=== PATIENT | female | born 1965 | race Caucasian/White ===

== ENCOUNTER → 2018-06-29 | Outpatient (REF) | payer OTHER, MEDICAID ==
[~2018-06-29] MED LIST: CYCL10TA PO; MULTCAP PO; PROTPAK PO; TOPA1TAB PO
[2018-06-29 16:03] LABS: APPEARANCE, URINE CLOUDY (CLEAR); BACTERIA, URINE AUTO 2+ (NEGATIVE); BILIRUBIN, URINE AUTO NEGATIVE (NEGATIVE); BLOOD, URINE BLOOD 3+ (NEGATIVE); COLOR, URINE YELLOW (YELLOW); COMPLEMENT C3 164 MG/DL (90-180); COMPLEMENT C4 33 MG/DL (10-40); GLUCOSE, URINE (UA) AUTO NEGATIVE (NEGATIVE); KETONE, URINE AUTO NEGATIVE (NEGATIVE); LEUKOCYTE ESTERASE, URINE AUTO 3+ (NEGATIVE); MUCUS, URINE SMALL (NEGATIVE); NITRITE, URINE AUTO POSITIVE (NEGATIVE); PROTEIN, URINE AUTO 2+ mg/dL (NEGATIVE); RBC, URINE AUTO TNTC /HPF (0-3); SPECIFIC GRAVITY URINE AUTO 1.008 (1.002-1.035); SQUAMOUS EPITHELIAL CELL UR AU 2 /HPF (0-6); UROBILINOGEN, URINE AUTO 0.2 mg/dL (0.0-2.0); WBC, URINE AUTO TNTC /HPF (0-3)
[2018-06-29 16:13] LABS: HEMATOCRIT 44.6 % (36.0-47.0); MEAN CORPUSCULAR HEMOGLOBIN 33.2 pg (27.0-33.0); MEAN CORPUSCULAR HGB CONC 33.6 g/dl (32.0-36.5); MEAN CORPUSCULAR VOLUME 98.7 fl (80.0-96.0); PLATELET COUNT, AUTOMATED 357 10^3/uL (150-450); RED BLOOD COUNT 4.52 10^6/uL (4.00-5.40)
[2018-06-29 16:28] LABS: CREATININE,RANDOM URINE 51.1 MG/DL; TOTAL PROTEIN,RANDOM URINE 87.4 MG/DL (0.0-12.0)
[2018-06-29 18:01] LABS: EOSINOPHILS 3 % (0-5); LYMPHOCYTES 30 % (16-52); MONOCYTES 6 % (0-8); NEUTROPHILS 61 % (35-75); PLATELET ESTIMATE NORMAL (NORMAL)
[2018-06-30 10:19] LABS: BLOOD UREA NITROGEN 10 MG/DL (7-18); CALCIUM LEVEL 9.2 MG/DL (8.5-10.1); CARBON DIOXIDE LEVEL 23 MEQ/L (21-32); CHLORIDE LEVEL 109 MEQ/L (98-107); GLOMERULAR FILTRATION RATE > 60.0 (>51); GLUCOSE, FASTING 100 MG/DL (70-100); POTASSIUM SERUM 4.2 MEQ/L (3.5-5.1); SODIUM LEVEL 141 MEQ/L (136-145)
[2018-07-07 14:19] LABS: ANA (HEP2) Negative (.); ANTI DS-DNA AB <1:10 titer (.); RNP ANTIBODY 0.5 AI (0.0-0.9); SMITHS ANTIBODY < 0.2 AI (0.0-0.9); SSA SJOGRENS A <0.2 AI (0.0-0.9); SSB SJOGRENS B <0.2 AI (0.0-0.9)
== END ==
LOC: M SFHCPLAZ 13:29
PROVIDERS: ATTEND Internal Medicine Rheumatology
DX: R76.8 Other specified abnormal immunological findings in serum (principal)

== ENCOUNTER 2018-07-14 10:06 | Day surgery (SDC) | payer OTHER ==
[~2018-07-14] VITALS: Ht 165.1 cm; Wt 89.7 kg
[~2018-07-14 10:06] MED LIST changes: +CIPR-249 PO; +CIPROFLOXACIN 400 MG in APPROPRIATE DILUENT 1 EA IV ONE; +LR 1,000 ML IV ONE
[2018-07-14] MEDS ORDERED: fentaNYL 100 MCG/2 ML INJECTION (J3010) As Ordered ONE ×2 (12:00→14:07)
[2018-07-14] MEDS ORDERED: LIDOCAINE 2% INJ 100 MG/5 ML SDV (FOR ANES.) As Ordered ONE (12:00)
[2018-07-14] MEDS ORDERED: PROPOFOL 200 MG/20 ML VIAL As Ordered ONE (12:00)
[2018-07-14] MEDS ORDERED: MIDAZOLAM INJ 2 MG/2 ML VIAL (J2250) As Ordered ONE (12:00)
[2018-07-14] MEDS ORDERED: ONDANSETRON 4MG/2ML VIAL (J2405) As Ordered ONE (12:19)
[2018-07-14] MEDS ORDERED: dexameTHASONE 4 MG/ML 1ML VIAL (J1100) As Ordered ONE (12:19)
[2018-07-14] MEDS ORDERED: CONRAY-60 60% 50ML VIAL (Q9961) As Ordered ONE (12:53)
[2018-07-14] MEDS ORDERED: ACETAMINOPHEN 1000MG 100ML IV BTL (OFIRMEV) (J0131 PER 10MG) As Ordered ONE (13:29)
--- NOTE | 2018-07-14 15:42 | RO ---
DATE OF PROCEDURE: 07/14/2018 PREPROCEDURE DIAGNOSIS: Bilateral kidney stones. POSTPROCEDURE DIAGNOSIS: Bilateral kidney stones. PROCEDURE: Cystoscopy, bilateral ureteroscopy with laser lithotripsy and basket extraction of stones, bilateral retrograde pyelogram with intraoperative interpretation of images, bilateral ureteral stent placement. SURGEON: Dr. Umesh Cordova COMPREHENSIVE ADVISOR: None. ANESTHESIA: General. OPERATIVE INDICATIONS: This is a 53-year-old female who was found to have bilateral kidney stones measuring up to 1.6 cm from the right and 1 cm in left. She previously had bilateral ureteral stents placed at an outside hospital. She was brought today for treatment of her stones. DESCRIPTION OF PROCEDURE: The patient was brought to the operating room where general anesthesia was induced. Prophylactic antibiotics were infused. She was then placed in dorsal lithotomy position and prepped and draped in the usual sterile fashion. A rigid cystoscope was inserted into the urethral meatus and advanced into the bladder. A guidewire was then advanced up the right collecting system along side the previously placed stent. That stent was then removed intact. I then advanced the ureteral access sheath over the wire up into the right collecting system. I went the up the access sheath with a flexible ureteroscope and examined the kidney, and of note, a 1.6 cm stone was seen in the right renal pelvis. I then utilized a 270 micron laser fiber to fragment the stone in several smaller pieces. All the fragments were then removed using a basket. Once satisfied that all the larger stones fragments have been removed and that the only thing remained was very small stone debris, I shot a retrograde pyelogram. It was notable for moderate right hydronephrosis and no extravasation. I then took another look around kidney and once again confirmed there were only tiny stone debris remaining. Once that was done, I withdrew the ureteroscope along with access sheath and no there were no stones seen in the ureter. I then utilized the wire to advance a 6 [place] x 22-32 cm JJ ureteral stent up into the right collecting system. The wire was removed and there were adequate curls of the stent in the right renal pelvis and in the bladder. I then advanced a wire up the left collecting system along side the previously placed stent. That stent was then removed intact. I then advanced the ureteral access sheath over the wire up into the right collecting system. I went up the access sheath with a flexible ureteroscope and the 1 cm stone was seen inside the left kidney. No other stones were seen. I then utilized the laser to fragment the stone in smaller pieces and then removed all pieces using a basket. Once satisfied that all the stones fragments were removed, a retrograde pyelogram was performed. It was notable for moderate left hydronephrosis and no extravasation. I then withdrew the ureteroscope along with access sheath and no stones were seen within the ureter. I then utilized the wire to advance a 6 [place] x 22-32 cm JJ ureteral stent up into the left collecting system. The wire was removed and there were adequate curls of the stent in the left renal pelvis and in the bladder. The bladder was then emptied of all fluid and this marked the conclusion of the procedure. The patient was then taken out of the dorsal lithotomy position, awakened from anesthesia and transported to the recovery room in stable condition. Estimated blood loss: 5 mL. Complications: None. Specimens: Kidney stone fragments. Plan: The patient will followup in the clinic in a few weeks with imaging prior to confirm all the stones are gone. We will likely remove her stents at that time.
--- NOTE | 2018-07-14 15:49 | REP ---
C-ARM VIEWS DURING BILATERAL URETERAL STENT PLACEMENT: Four C-arm views are performed. There is placement of the bilateral ureteral stents. The proximal end of each stent is in the respective renal pelvis and the distal ends are in the urinary bladder. 31 seconds fluoroscopy time utilized. Electronically Signed by Brant Rockwell MD 07/18/2018 04:55 P
[2018-07-14] MEDS ORDERED: ONDANSETRON 4MG/2ML VIAL (J2405) IV PRN (16:00)
[2018-07-14] MEDS ORDERED: PERCOCET 5MG/325MG TAB PO PRN (16:00)
[2018-07-14] MEDS ORDERED: ACETAMINOPHEN TAB 650MG DOSE (2X325MG) PO PRN (16:00)
[2018-07-14] MEDS ORDERED: LR 1,000 ML IV SCH (16:00)
[2018-07-14] MEDS ORDERED: fentaNYL 100 MCG/2 ML INJECTION (J3010) IV PRN (16:00)
[2018-07-14] MEDS ORDERED: HYDROMORPHONE HCL 0.5 MG/ 0.5 ML SYRINGE (J1170 PER 1) IV PRN (16:00)
[2018-07-14 17:15] VITALS: BP 166/70
== END 2018-07-14 17:28 | disposition home or self-care (01) ==
LOC: M SDC 10:06
PROVIDERS: ATTEND Urology
DX: N20.0 Calculus of kidney (principal); I10 Essential (primary) hypertension; K21.9 Gastro-esophageal reflux disease without esophagitis; M50.30 Other cervical disc degeneration, unspecified cervical region; G43.909 Migraine, unspecified, not intractable, without status migrainosus; R56.9 Unspecified convulsions; D33.0 Benign neoplasm of brain, supratentorial; Z88.1 Allergy status to other antibiotic agents; Z88.8 Allergy status to other drugs, medicaments and biological substances; Z79.899 Other long term (current) drug therapy; Z72.0 Tobacco use; Z87.820 Personal history of traumatic brain injury; Z86.73 Personal history of transient ischemic attack (TIA), and cerebral infarction without residual deficits; Z98.51 Tubal ligation status
CPT/HCPCS: 52356; 74420; 82360; 88300; C1769; C1894; C2617; J0131; J0690; J0744; J1100; J2250; J2405; J3010; Q9961

== ENCOUNTER → 2018-07-21 | Outpatient (CLI) | payer OTHER, MEDICAID ==
[~2018-07-21] MED LIST changes: -CIPROFLOXACIN 400 MG in APPROPRIATE DILUENT 1 EA IV ONE; -LR 1,000 ML IV ONE
--- NOTE | 2018-07-21 10:11 | REP ---
Chest two views HISTORY: Chest pain Comparison: 03/11/2018 The lungs are clear. The heart is normal in size. The pulmonary vasculature is normal in appearance. The bony structure is intact. IMPRESSION: No acute disease. Electronically Signed by Julian Morales MD 07/21/2018 10:03 A
== END ==
LOC: M SMT 08:58
PROVIDERS: ATTEND Urology
DX: N20.0 Calculus of kidney (principal)

== ENCOUNTER → 2018-08-05 | Outpatient (REF) | payer OTHER, MEDICAID ==
[2018-08-05 13:53] LABS: AMORPHOUS SEDIMENT SMALL (NEGATIVE); APPEARANCE, URINE HAZY (CLEAR); BACTERIA, URINE AUTO 1+ (NEGATIVE); BILIRUBIN, URINE AUTO NEGATIVE (NEGATIVE); BLOOD, URINE BLOOD NEGATIVE (NEGATIVE); COLOR, URINE YELLOW (YELLOW); GLUCOSE, URINE (UA) AUTO NEGATIVE (NEGATIVE); KETONE, URINE AUTO NEGATIVE (NEGATIVE); LEUKOCYTE ESTERASE, URINE AUTO 2+ (NEGATIVE); NITRITE, URINE AUTO NEGATIVE (NEGATIVE); PROTEIN, URINE AUTO NEGATIVE (NEGATIVE); RBC, URINE AUTO 0 /HPF (0-3); SPECIFIC GRAVITY URINE AUTO 1.004 (1.002-1.035); SQUAMOUS EPITHELIAL CELL UR AU 3 /HPF (0-6); UROBILINOGEN, URINE AUTO 0.2 mg/dL (0.0-2.0); WBC, URINE AUTO 11 /HPF (0-3)
== END ==
LOC: M SMT 13:36
PROVIDERS: ATTEND Urology
DX: N20.0 Calculus of kidney (principal)